=== PATIENT | female | born 1980 | race Caucasian/White ===

== ENCOUNTER → 2023-10-19 14:10 | Outpatient (REF) | payer OTHER, SELFPAY | LOC: MRI 3T 14:10 | PROVIDERS: ATTENDING PHYSICIAN Physician Assistant Medical | DX: H53.9 Unspecified visual disturbance (principal); G44.52 New daily persistent headache (NDPH) | CPT/HCPCS: 70551 ==

== ENCOUNTER → 2024-09-17 14:19 | Outpatient (REF) | payer OTHER, SELFPAY | LOC: HWRAD 14:19 | PROVIDERS: ATTENDING PHYSICIAN Physician Assistant Medical | DX: M54.2 Cervicalgia (principal) | CPT/HCPCS: 72052 ==

== ENCOUNTER → 2024-11-10 06:57 | Outpatient (REF) | payer OTHER, SELFPAY | LOC: PAVMRI 06:57 | PROVIDERS: ATTENDING PHYSICIAN Pain Medicine Interventional Pain Medicine; FAMILY PHYSICIAN Physician Assistant Medical | DX: M54.12 Radiculopathy, cervical region (principal) | CPT/HCPCS: 72141 ==

== ENCOUNTER → 2024-12-27 11:03 | Outpatient (REF) | payer OTHER, SELFPAY | LOC: WDC 11:03 | PROVIDERS: ATTENDING PHYSICIAN Obstetrics & Gynecology; FAMILY PHYSICIAN Family Medicine | DX: Z12.31 Encounter for screening mammogram for malignant neoplasm of breast (principal); R92.333 Mammographic heterogeneous density, bilateral breasts | CPT/HCPCS: 77063; 77067 ==

== ENCOUNTER → 2025-01-01 08:55 | Outpatient (REF) | payer OTHER, SELFPAY | LOC: WDC 08:55 | PROVIDERS: ATTENDING PHYSICIAN Obstetrics & Gynecology; FAMILY PHYSICIAN Family Medicine | DX: R92.8 Other abnormal and inconclusive findings on diagnostic imaging of breast (principal) | CPT/HCPCS: 76642 ==

== ENCOUNTER → 2025-05-20 14:43 | Outpatient (REF) | payer OTHER, SELFPAY | LOC: WDC 14:43 | PROVIDERS: ATTENDING PHYSICIAN Obstetrics & Gynecology; FAMILY PHYSICIAN Physician Assistant Medical | DX: R92.333 Mammographic heterogeneous density, bilateral breasts (principal) | CPT/HCPCS: 76641 ==